=== PATIENT | male | born 1995 ===

== ENCOUNTER 2018-05-31 19:28 | Emergency (ER) | payer OTHER ==
--- NOTE | 2018-05-31 19:40 | UC ---
Back Pain HPI - HPI Summary HPI Summary: The following HPI, PE, and Treatment plan were discussed with the pt via [employer] phone. 22 yo male presents with low back pain since around 1400 this afternoon. He tells me that he went to sit down, but midway down decided he wanted to stand up - during this motion he felt a pull in his lower back. He is worried he has a herniated disk. Has not taken anything for his pain. He is ambulatory without assistance or noticeable limp. Pain is worse with sitting or bending. Denies saddle anesthesia, loss of bowel/bladder control, or numbness/tingling down legs. - History of Current Complaint Stated Complaint: BACK PAIN Time Seen by Provider: 05/31/18 19:40 Hx Obtained From: Patient Onset/Duration: Sudden Onset Severity Initially: Moderate Severity Currently: Moderate Pain Intensity: 7 Pain Scale Used: 0-10 Numeric Aggravating Factor(s): Bending - Allergies/Home Medications Allergies/Adverse Reactions: Allergies Allergy/AdvReac Type Severity Reaction Status Date / Time No Known Allergies Allergy Verified 05/31/18 20:02 PMH/Surg Hx/FS Hx/Imm Hx - Additional Past Medical History Additional PMH: None Previously Healthy: Yes - Surgical History Surgical History: None - Family History Known Family History: Positive: None - Social History Occupation: Student Lives: Dormitory/Roommates Alcohol Use: Occasionally Substance Use Type: None Smoking Status (MU): Never Smoked Tobacco Review of Systems Constitutional: Negative Skin: Negative Respiratory: Negative Cardiovascular: Negative Gastrointestinal: Negative Genitourinary: Negative Neurovascular: Negative Musculoskeletal: Other: - LBP Neurological: Negative Psychological: Negative All Other Systems Reviewed And Are Negative: Yes Physical Exam - Summary Physical Exam Summary: GENERAL: NAD. WDWN. No pain distress. SKIN: No rashes, sores, lesions, or open wounds. NECK: Supple. FROM. Nontender. CHEST: No accessory muscle use. Breathing comfortably and in no distress. CV: Pulses intact. Brisk cap refill. MSK: TTP over lumbar paraspinal muscles. Pain with flexion and extension of spine. Positive SLR b/l. Strength 5/5 B/L LEs including dorsiflexion and plantar flexion. FROM B/L LEs. No edema. NEURO: Alert. CN II-XII grossly intact. Sensations intact B/L LEs L3-S1. PSYCH: Age appropriate behavior. Triage Information Reviewed: Yes Back Pain Course/Dx - Course Course Of Treatment: Suspect muscle strain of lower back. I had a long discussion with the pt via the [employer] that an MRI is not indicated at this time and his symptoms do not seem consistent with a herniated disk. He was agreeable to having Toradol IM and taking ibuprofen prn pain. I advised him to apply heat and f/u if his symptoms persist or worsen. - Differential Dx/Diagnosis Provider Diagnoses: Low back strain Discharge - Sign-Out/Discharge Documenting (check all that apply): Patient Departure - Discharge Plan Condition: Stable Disposition: HOME Prescriptions: Ibuprofen 600 mg PO Q6H PRN #30 tablet PRN Reason: Pain Patient Education Materials: Muscle Strain (DC) Referrals: No Primary Care Phys,NOPCP [Primary Care Provider] - Additional Instructions: If you develop a fever, shortness of breath, chest pain, new or worsening symptoms - please call your PCP or go to the ED. 1) Applying heat to the area may help your pain 2) Tomorrow may start taking the Ibuprofen every 6 hours for pain - Billing Disposition and Condition Condition: STABLE Disposition: Home
[2018-05-31] MEDS ORDERED: Ketorolac INJ* 30 MG/ML 1 ML VIAL IM ONE (20:25)
== END 2018-05-31 21:00 | disposition home or self-care (01) ==
LOC: UCEAST 19:28
DX: S39.012A Strain of muscle, fascia and tendon of lower back, initial encounter (principal); X58.XXXA Exposure to other specified factors, initial encounter; Y93.89 Activity, other specified; Y92.9 Unspecified place or not applicable
CPT/HCPCS: 99202; G0463; J1885